=== PATIENT | female | born 1960 | race Caucasian/White ===

== ENCOUNTER 2017-08-09 09:57 | Emergency (ER) | payer OTHER ==
[~2017-08-09] VITALS: Ht 167.6 cm; Wt 95.5 kg
[2017-08-09] MEDS ORDERED: PERCOCET 5/31 TABLET PO (10:56)
[2017-08-09 11:52] VITALS: BP 104/59
== END 2017-08-09 11:52 | disposition home or self-care (01) ==
LOC: EME 09:57
DX: S82.001A Unspecified fracture of right patella, initial encounter for closed fracture (principal); W01.198A Fall on same level from slipping, tripping and stumbling with subsequent striking against other object, initial encounter; Y93.E1 Activity, personal bathing and showering; Y92.002 Bathroom of unspecified non-institutional (private) residence as the place of occurrence of the external cause; Z88.8 Allergy status to other drugs, medicaments and biological substances
CPT/HCPCS: 73564; 99281; 99285

== ENCOUNTER → 2017-08-12 | Outpatient (CLI) | payer OTHER ==
[~2017-08-12] MED LIST: PERCOCET 5/31 TABLET PO
== END | disposition home or self-care (01) ==
LOC: CDC 15:02
DX: Z01.810 Encounter for preprocedural cardiovascular examination (principal); M25.561 Pain in right knee; S82.031A Displaced transverse fracture of right patella, initial encounter for closed fracture; I25.2 Old myocardial infarction
CPT/HCPCS: 93000

== ENCOUNTER 2017-08-13 10:36 | Day surgery (SDC) | payer OTHER ==
[~2017-08-13] VITALS: Ht 162.6 cm; Wt 77.1 kg
[2017-08-13 11:06] VITALS: BP 130/70
[2017-08-13 17:22] VITALS: BP 151/72
[2017-08-13 18:31] VITALS: BP 146/67
== END 2017-08-13 18:30 | disposition home or self-care (01) ==
LOC: SDC 10:36
PROC: 0QSD04Z Reposition Right Patella with Internal Fixation Device, Open Approach (ICD-10-PCS; principal; 2017-08-13)
DX: S82.041A Displaced comminuted fracture of right patella, initial encounter for closed fracture (principal); W18.2XXA Fall in (into) shower or empty bathtub, initial encounter; Y93.E1 Activity, personal bathing and showering; Y92.002 Bathroom of unspecified non-institutional (private) residence as the place of occurrence of the external cause
CPT/HCPCS: 73560; 76000; C1769; J0131; J0690; J1170; J2250; J2405; J3010